=== PATIENT | female | born 1985 | race Caucasian/White ===

== ENCOUNTER 2018-01-20 19:07 | Inpatient (IN) | payer OTHER ==
[~2018-01-20] VITALS: Ht 160 cm; Wt 93.0 kg
[2018-01-20] MEDS ORDERED: PREN1TAB80 PO (19:48)
[2018-01-20] MEDS ORDERED: LEVO75 PO (19:48)
[2018-01-20 19:49] VITALS: BP 140/81
[2018-01-20] MEDS ORDERED: OXYTOCIN 30 UNITS/LACT RINGERS 500 ML IV ONE (19:59)
[2018-01-20] MEDS ORDERED: RINGERS SOLUTION,LACTATED 1,000 ML IV PRN (19:59)
[2018-01-20] MEDS ORDERED: FentaNYL CITRATE-PF 100 MCG/2 ML VIAL IVP PRN (20:00)
[2018-01-20] MEDS: OXYGEN THERAPY IH SCH (20:00)
[2018-01-20] MEDS ORDERED: METOCLOPRAMIDE HCL 5 MG/ML 2 ML VIAL IVP PRN (20:00)
[2018-01-20] MEDS ORDERED: CITRIC ACID/SODIUM CITRATE 30 ML SOLUTION UDCUP PO PRN (20:00)
[2018-01-20 20:34] LABS: BASOPHILS % (AUTO) 0.5 % (0.0-2.0); EOSINOPHILS % (AUTO) 0.7 % (1.0-6.0); HEMATOCRIT 36.3 % (36-46); HEMOGLOBIN 12.3 g/dL (12.0-16.0); LYMPHOCYTES # (AUTO) 1.5 K/uL (1.0-4.8); LYMPHOCYTES % (AUTO) 11.5 % (22.0-44.0); MEAN CORPUSCULAR HEMOGLOBIN 31.8 pg (26.0-34.0); MEAN CORPUSCULAR HGB CONC 33.8 G/dL (31.0-37.0); MEAN CORPUSCULAR VOLUME 94 fL (80-100); MONOCYTES # (AUTO) 0.9 K/uL (0.1-1.0); MONOCYTES % (AUTO) 7.1 % (2.0-9.0); NEUTROPHILS # (AUTO) 10.5 K/uL (1.8-7.7); NEUTROPHILS % (AUTO) 80.2 % (40.0-70.0); PLATELET COUNT (AUTO)-OB 190 K/uL (150-450); RED BLOOD CELL COUNT(AUTO) 3.85 MIL/uL (4.00-5.20); RED CELL DISTRIBUTION WIDTH 15.2 % (11.5-14.5)
[2018-01-20] MEDS: RINGERS SOLUTION,LACTATED 1,000 ML IV SCH ×2 (21:00→22:06)
[2018-01-20] MEDS ORDERED: OXYTOCIN 30 UNITS/LACT RINGERS 500 ML IV PRN (21:42)
[2018-01-20] MEDS ORDERED: ROPIVACAINE HCL/PF 0.2% 100 ML ED ONE (22:14)
[2018-01-21] MEDS: RINGERS SOLUTION,LACTATED 1,000 ML IV SCH ×3 (02:17→21:33)
[2018-01-21] MEDS ORDERED: ROPIVACAINE HCL/PF 0.2% 100 ML ED ONE (05:21)
[2018-01-21] MEDS ORDERED: LIDOCAINE HCL 2%/EPI 1:200,000/PF 20 ML VIAL ONE (05:29)
[2018-01-21] MEDS ORDERED: LIDOCAINE HCL/PF 2% 5 ML VIAL ONE (05:29)
[2018-01-21] MEDS ORDERED: ACETAMINOPHEN 1000 MG/ISO-OSM 100 ML IV ONE ×3 (06:15→09:15)
[2018-01-21] MEDS ORDERED: AMPICILLIN SODIUM 2 GM/NS 100 ML IV SCH (06:30)
[2018-01-21] MEDS ORDERED: MORPHINE SULFATE/PF 0.5 MG/ML 10 ML AMP ONE ×2 (06:49→09:05)
[2018-01-21] MEDS ORDERED: FentaNYL CITRATE-PF 100 MCG/2 ML VIAL ONE (07:40)
[2018-01-21] MEDS ORDERED: DiphenhydrAMINE HCL 50 MG/ML VIAL IVP PRN ×2 (08:00)
[2018-01-21] MEDS ORDERED: ONDANSETRON HCL 4 MG/2 ML VIAL IVP PRN ×2 (08:00)
[2018-01-21] MEDS ORDERED: OXYGEN THERAPY IH SCH ×2 (08:00)
[2018-01-21] MEDS ORDERED: MORPHINE SULFATE 10 MG/ML SYRINGE IVP PRN ×2 (08:00→09:15)
[2018-01-21] MEDS ORDERED: NALBUPHINE HCL 10 MG/ML VIAL IVP PRN ×3 (08:00)
[2018-01-21] MEDS ORDERED: MEPERIDINE-PF 25 MG/ML SYRINGE IVP PRN (08:00)
[2018-01-21] MEDS ORDERED: NALOXONE HCL 0.4 MG/ML VIAL IVP PRN (08:00)
[2018-01-21] MEDS ORDERED: FentaNYL CITRATE-PF 100 MCG/2 ML VIAL IVP PRN ×2 (08:00)
[2018-01-21] MEDS ORDERED: MORPHINE SULFATE 4 MG/ML SYRINGE IVP PRN (08:00)
[2018-01-21] MEDS ORDERED: GUM MASTIC/STORAX/MSAL/ALCOHOL LIQUID 0.67 ML VIAL TP ONE (08:18)
[2018-01-21] MEDS ORDERED: MORPHINE SULFATE 2 MG/ML SYRINGE IVP PRN (09:15)
[2018-01-21] MEDS ORDERED: DEXAMETHASONE SOD PHOS 4 MG/ML VIAL IVP PRN (09:15)
[2018-01-21] MEDS ORDERED: DEXAMETHASONE SOD PHOS 4 MG/ML VIAL ONE (09:22)
[2018-01-21] MEDS ORDERED: OXYTOCIN 30 UNITS/LACT RINGERS 500 ML IV ONE (12:01)
[2018-01-21] MEDS ORDERED: OxyCODONE HCL/ACETAMINOPHEN 5-325 MG TABLET PO PRN (12:15)
[2018-01-21] MEDS ORDERED: LANOLIN 7 GM OINTMENT TP PRN (12:15)
[2018-01-21] MEDS: ACETAMINOPHEN 1000 MG/ISO-OSM 100 ML IV SCH (14:13)
[2018-01-21] MEDS ORDERED: METOCLOPRAMIDE HCL 5 MG/ML 2 ML VIAL IVP PRN (17:30)
[2018-01-21] MEDS: MAGNESIUM HYDROXIDE SUSPENSION 30 ML UDCUP PO SCH (20:59)
[2018-01-22] MEDS: ACETAMINOPHEN 1000 MG/ISO-OSM 100 ML IV SCH (00:04)
[2018-01-22] MEDS: OXYGEN THERAPY IH SCH (00:18)
[2018-01-22] MEDS ORDERED: IBUPROFEN 800 MG TABLET PO ONE (06:00)
[2018-01-22] MEDS: LEVOTHYROXINE SODIUM 100 MCG TABLET PO SCH (06:15)
[2018-01-22 06:34] LABS: BASOPHILS % (AUTO) 0.3 % (0.0-2.0); EOSINOPHILS % (AUTO) 0.2 % (1.0-6.0); HEMATOCRIT 34.1 % (36-46); HEMOGLOBIN 11.5 g/dL (12.0-16.0); LYMPHOCYTES # (AUTO) 1.5 K/uL (1.0-4.8); LYMPHOCYTES % (AUTO) 9.7 % (22.0-44.0); MEAN CORPUSCULAR HEMOGLOBIN 32.1 pg (26.0-34.0); MEAN CORPUSCULAR HGB CONC 33.6 G/dL (31.0-37.0); MEAN CORPUSCULAR VOLUME 96 fL (80-100); MONOCYTES # (AUTO) 1.1 K/uL (0.1-1.0); MONOCYTES % (AUTO) 6.7 % (2.0-9.0); NEUTROPHILS # (AUTO) 13.2 K/uL (1.8-7.7); NEUTROPHILS % (AUTO) 83.1 % (40.0-70.0); PLATELET COUNT (AUTO)-OB 189 K/uL (150-450); RED BLOOD CELL COUNT(AUTO) 3.57 MIL/uL (4.00-5.20); RED CELL DISTRIBUTION WIDTH 15.7 % (11.5-14.5)
[2018-01-22] MEDS: MAGNESIUM HYDROXIDE SUSPENSION 30 ML UDCUP PO SCH ×2 (10:37→21:24)
[2018-01-22] MEDS: IBUPROFEN 800 MG TABLET PO PRN ×2 (14:01→20:51)
[2018-01-22] MEDS: OxyCODONE HCL/ACETAMINOPHEN 5-325 MG TABLET PO PRN (21:21)
[2018-01-23] MEDS: IBUPROFEN 800 MG TABLET PO PRN ×2 (06:17→13:50)
[2018-01-23] MEDS: OxyCODONE HCL/ACETAMINOPHEN 5-325 MG TABLET PO PRN (07:18)
[2018-01-23] MEDS: LEVOTHYROXINE SODIUM 100 MCG TABLET PO SCH (07:18)
[2018-01-23] MEDS: MAGNESIUM HYDROXIDE SUSPENSION 30 ML UDCUP PO SCH (08:39)
[2018-01-23] MEDS ORDERED: OXYTOCIN 10 UNITS/ML VIAL IM ONE (12:00)
[2018-01-23] MEDS ORDERED: PROPOFOL 1% 20 ML VIAL IVP ONE (12:00)
[2018-01-23] MEDS ORDERED: ONDANSETRON HCL 4 MG/2 ML VIAL IVP ONE (12:00)
[2018-01-23] MEDS ORDERED: LIDOCAINE HCL/PF 2% 5 ML VIAL INJ ONE (12:00)
[2018-01-23] MEDS ORDERED: HYDR-309 PO (12:47)
[2018-01-23] MEDS ORDERED: IBUP-2071 PO (12:48)
[2018-01-23] MEDS ORDERED: DSS100 PO (12:49)
== END 2018-01-23 14:00 | disposition home or self-care (01) | DRG 765 ==
LOC: OBSVTOIN 19:07 → 4S 19:07
PROVIDERS: ADMIT Obstetrics & Gynecology; ATTEND Obstetrics & Gynecology
PROC: 10D00Z1 Extraction of Products of Conception, Low, Open Approach (ICD-10-PCS; principal; 2018-01-21)
PROC: 0UB00ZZ Excision of Right Ovary, Open Approach (ICD-10-PCS; 2018-01-21)
DX: O76 Abnormality in fetal heart rate and rhythm complicating labor and delivery (principal); O75.2 Pyrexia during labor, not elsewhere classified; O16.4 Unspecified maternal hypertension, complicating childbirth; E07.9 Disorder of thyroid, unspecified; N83.201 Unspecified ovarian cyst, right side; O69.81X0 Labor and delivery complicated by cord around neck, without compression, not applicable or unspecified; O77.0 Labor and delivery complicated by meconium in amniotic fluid; O34.83 Maternal care for other abnormalities of pelvic organs, third trimester; Z3A.40 40 weeks gestation of pregnancy; Z37.0 Single live birth; O99.284 Endocrine, nutritional and metabolic diseases complicating childbirth
CPT/HCPCS: 76805; 86850; 86900; 86901; 87081; 88305; 89060; J0131; J0290; J0690; J1100; J2270; J2274; J2405; J2590; J2704; J2795; J3010; J3490; J7120

== ENCOUNTER 2019-11-16 09:59 | Inpatient (IN) | payer OTHER ==
[~2019-11-16] VITALS: Ht 173 cm; Wt 93.9 kg
[~2019-11-16 09:59] MED LIST: DSS100 PO; HYDR-309 PO; IBUP-2071 PO; LEVO75 PO; PREN1TAB80 PO
[2019-11-16] MEDS ORDERED: RINGERS SOLUTION,LACTATED 1,000 ML IV ONE ×2 (10:28→10:33)
[2019-11-16] MEDS ORDERED: LEVO50 PO (10:41)
[2019-11-16] MEDS ORDERED: CALC-877 PO (10:41)
[2019-11-16] MEDS ORDERED: PREN-217 PO (10:41)
[2019-11-16] MEDS ORDERED: CITRIC ACID/SODIUM CITRATE 30 ML SOLUTION UDCUP PO ONE (10:45)
[2019-11-16] MEDS ORDERED: METOCLOPRAMIDE HCL 5 MG/ML 2 ML VIAL IVP ONE (10:45)
[2019-11-16] MEDS ORDERED: DOCU-275 PO (10:55)
[2019-11-16] MEDS ORDERED: HYDR-4061 PO (10:55)
[2019-11-16 10:58] VITALS: BP 131/75
[2019-11-16 11:19] LABS: BASOPHILS % (AUTO) 0.5 % (0.0-2.0); EOSINOPHILS % (AUTO) 1.6 % (1.0-6.0); HEMATOCRIT 38.2 % (36-46); LYMPHOCYTES # (AUTO) 1.6 K/uL (1.0-4.8); LYMPHOCYTES % (AUTO) 19.5 % (22.0-44.0); MEAN CORPUSCULAR HEMOGLOBIN 32.7 pg (26.0-34.0); MEAN CORPUSCULAR VOLUME 96 fL (80-100); MONOCYTES # (AUTO) 0.5 K/uL (0.1-1.0); MONOCYTES % (AUTO) 5.8 % (2.0-9.0); NEUTROPHILS # (AUTO) 6.1 K/uL (1.8-7.7); NEUTROPHILS % (AUTO) 72.6 % (40.0-70.0); PLATELET COUNT (AUTO)-OB 168 K/uL (150-450); RED BLOOD CELL COUNT(AUTO) 3.97 MIL/uL (4.00-5.20); RED CELL DISTRIBUTION WIDTH 14.9 % (11.5-14.5)
[2019-11-16] MEDS ORDERED: MORPHINE SULFATE/PF 0.5 MG/ML 10 ML AMP ONE (11:41)
[2019-11-16] MEDS ORDERED: FentaNYL CITRATE-PF 100 MCG/2 ML VIAL ONE (11:41)
[2019-11-16] MEDS ORDERED: BUPIVACAINE HCL/DEX-WATER/PF 0.75% 2 ML AMP ONE (11:41)
[2019-11-16] MEDS ORDERED: ACETAMINOPHEN 1000 MG/ISO-OSM 100 ML IV ONE (11:42)
[2019-11-16] MEDS ORDERED: ONDANSETRON HCL 4 MG/2 ML VIAL IVP PRN (13:30)
[2019-11-16] MEDS ORDERED: NALOXONE HCL 0.4 MG/ML VIAL IVP PRN (13:30)
[2019-11-16] MEDS ORDERED: FentaNYL CITRATE-PF 100 MCG/2 ML VIAL IVP PRN (13:30)
[2019-11-16] MEDS ORDERED: DEXAMETHASONE SOD PHOS 4 MG/ML VIAL IVP PRN (13:30)
[2019-11-16] MEDS ORDERED: MORPHINE SULFATE 10 MG/ML SYRINGE IVP PRN (13:30)
[2019-11-16] MEDS ORDERED: DiphenhydrAMINE HCL 50 MG/ML VIAL IVP PRN ×2 (13:30)
[2019-11-16] MEDS ORDERED: NALBUPHINE HCL 10 MG/ML VIAL IVP PRN ×3 (13:30)
[2019-11-16] MEDS ORDERED: OXYTOCIN 30 UNITS/LACT RINGERS 500 ML IV ONE (14:49)
[2019-11-16] MEDS ORDERED: LANOLIN 7 GM OINTMENT TP PRN (15:00)
[2019-11-16] MEDS: ONDANSETRON HCL 4 MG/2 ML VIAL IVP PRN ×2 (16:49→22:35)
[2019-11-16] MEDS ORDERED: OXYGEN THERAPY IH SCH ×3 (20:00)
[2019-11-16] MEDS: RINGERS SOLUTION,LACTATED 1,000 ML IV SCH (21:30)
[2019-11-16] MEDS: ACETAMINOPHEN 1000 MG/ISO-OSM 100 ML IV SCH (21:33)
[2019-11-17] MEDS: ACETAMINOPHEN 1000 MG/ISO-OSM 100 ML IV SCH (03:57)
[2019-11-17] MEDS ORDERED: ONDANSETRON HCL 4 MG/2 ML VIAL IVP ONE (05:28)
[2019-11-17] MEDS ORDERED: DEXAMETHASONE SOD PHOS 4 MG/ML VIAL IVP ONE (05:28)
[2019-11-17] MEDS ORDERED: EPHEDrine SULFATE 50 MG/ML VIAL IM ONE (05:28)
[2019-11-17] MEDS ORDERED: OXYTOCIN 10 UNITS/ML VIAL IM ONE (05:28)
[2019-11-17] MEDS ORDERED: 0.9% SODIUM CHLORIDE 10 ML VIAL IVP ONE (05:28)
[2019-11-17] MEDS: RINGERS SOLUTION,LACTATED 1,000 ML IV SCH (05:55)
[2019-11-17] MEDS ORDERED: INFLUENZA VIRUS VACCINE QVS 2019-20 (3YR+)/PF 60 MCG/0.5 ML SYRINGE IM ONE (06:45)
[2019-11-17] MEDS ORDERED: KETOROLAC TROMETHAMINE 30 MG/ML VIAL IVP ONE (07:30)
[2019-11-17] MEDS: MAGNESIUM HYDROXIDE SUSPENSION 30 ML UDCUP PO SCH ×2 (07:43→21:21)
[2019-11-17] MEDS: LEVOTHYROXINE SODIUM 25 MCG TABLET PO SCH (07:43)
[2019-11-17 08:00] LABS: BASOPHILS % (AUTO) 0.3 % (0.0-2.0); EOSINOPHILS % (AUTO) 0.1 % (1.0-6.0); HEMATOCRIT 36.1 % (36-46); HEMOGLOBIN 12.4 g/dL (12.0-16.0); LYMPHOCYTES # (AUTO) 1.8 K/uL (1.0-4.8); LYMPHOCYTES % (AUTO) 13.4 % (22.0-44.0); MEAN CORPUSCULAR HGB CONC 34.3 G/dL (31.0-37.0); MEAN CORPUSCULAR VOLUME 96 fL (80-100); MONOCYTES # (AUTO) 0.8 K/uL (0.1-1.0); MONOCYTES % (AUTO) 5.8 % (2.0-9.0); NEUTROPHILS # (AUTO) 10.6 K/uL (1.8-7.7); NEUTROPHILS % (AUTO) 80.4 % (40.0-70.0); PLATELET COUNT (AUTO)-OB 187 K/uL (150-450); RED BLOOD CELL COUNT(AUTO) 3.75 MIL/uL (4.00-5.20); RED CELL DISTRIBUTION WIDTH 14.9 % (11.5-14.5)
[2019-11-17] MEDS ORDERED: OxyCODONE HCL/ACETAMINOPHEN 5-325 MG TABLET PO PRN ×2 (15:00)
[2019-11-17] MEDS: IBUPROFEN 800 MG TABLET PO PRN (18:43)
[2019-11-18] MEDS: LEVOTHYROXINE SODIUM 25 MCG TABLET PO SCH (07:01)
[2019-11-18] MEDS: MAGNESIUM HYDROXIDE SUSPENSION 30 ML UDCUP PO SCH (08:42)
[2019-11-18] MEDS: IBUPROFEN 800 MG TABLET PO PRN (08:43)
[2019-11-18] MEDS ORDERED: DOCU-275 PO (12:56)
== END 2019-11-18 14:25 | disposition home or self-care (01) | DRG 785 ==
LOC: OBSVTOIN 09:59 → 4S 09:59 → NSY 15:51 → 4S 15:52
PROVIDERS: ADMIT Obstetrics & Gynecology; ATTEND Obstetrics & Gynecology
PROC: 10D00Z1 Extraction of Products of Conception, Low, Open Approach (ICD-10-PCS; principal; 2019-11-16)
PROC: 0UB70ZZ Excision of Bilateral Fallopian Tubes, Open Approach (ICD-10-PCS; 2019-11-16)
DX: O34.211 Maternal care for low transverse scar from previous cesarean delivery (principal); Z3A.39 39 weeks gestation of pregnancy; Z37.0 Single live birth; Z30.2 Encounter for sterilization
CPT/HCPCS: 86850; 86900; 86901; 87081; 88302; 90686; J0131; J0690; J1100; J1885; J2270; J2274; J2405; J2590; J3010; J3490; J7120